=== PATIENT | female | born 1990 | race Caucasian/White ===

== ENCOUNTER 2017-10-22 17:05 | Emergency (ER) | payer OTHER ==
[~2017-10-22] VITALS: Ht 160 cm; Wt 113.7 kg
[2017-10-22 17:18] VITALS: BP 172/126; PULSE 85; TEMP 36.6; O2SAT 99; Ht 160 cm; Wt 113.7 kg
[2017-10-22] MEDS ORDERED: OXYC-57 PO (17:42)
[2017-10-22] MEDS ORDERED: CLIN300C2 PO (17:42)
--- NOTE | 2017-10-22 17:44 | EMERGENCY ROOM VISIT NOTE ---
History First contact with patient: 17:20 Chief Complaint: DENTAL PAIN Stated Complaint: TOOTH PAIN Nursing Triage Summary: Pt c/o right lower dental pain. States needs surgery to have a tooth removed. Pain into jaw and right ear. Lump in throat, unable to open/close mouth the whole way. Unable to find oral surgeon who takes her insurance, closest she can find is [facility]. Took 2 hydrocodone 5mg at 1200. Alternating Tylenol/Ibuprofen. History of Present Illness The patient is a 27 year old female who presents to the Emergency Room with complaints of right lower dental pain. The patient states that she has a broken off right lower molar. She reports pain in the right jaw which has been present for 1 week. She was seen at an urgent care and placed on Augmentin which she has been taking. She feels the pain has been worsening. She rates her discomfort an 8/10. The pain radiates into the ear and on the neck. She describes the pain as throbbing. She states there is a lump in the right side of her throat as well. She has been alternating hot and cold as well as taking Tylenol and ibuprofen without relief. She does admit to having a few leftover hydrocodone from a previous episode of dental pain and took this without relief. She has been told previously that she needs to have surgery to have the tooth removed. She reports she has been trying to get in with an oral surgeon, however she cannot find one that takes her insurance. Review of Systems A complete 10 point review of systems was reviewed with the patient with pertinent positives and negatives as per history of present illness. All else were negative. Past Medical/Surgical History Medical Problems: (1) No significant active problems Social History Smoking Status: Current Every Day Smoker Alcohol Use: none Housing Status: lives with family Current/Historical Medications Scheduled Clindamycin Hcl (Cleocin), 300 MG PO QID Scheduled PRN Oxycodone/Acetaminophen 5MG/325MG (Percocet 5MG/325MG), 1-2 TABS PO Q6H PRN for Pain Physical Exam Vital Signs Date Time Temp Pulse Resp B/P (MAP) Pulse Ox O2 Delivery O2 Flow Rate FiO2 18 17:18 36.6 85 18 172/126 99 Room Air Physical Exam VITALS: Vitals are noted on the nurse's note and reviewed by myself. Vital signs stable. GENERAL: This is a 27-year-old female, in no acute distress, nondiaphoretic, well-developed well-nourished. SKIN: The skin was without rashes. EARS: External auditory canals clear, tympanic membranes pearly osullivan without erythema or effusion bilaterally. EYES: Pupils equal round and reactive to light and accommodation. MOUTH: Mucous membranes moist. There is a broken off right lower molar with mild edema of the surrounding gums. No drainage or signs of an obvious abscess. NECK: Supple without nuchal rigidity. Slightly enlarged right submandibular lymph node. HEART: Regular rate and rhythm without murmurs gallops or rubs. LUNGS: Clear to auscultation bilaterally without wheezes, rales or rhonchi. NEURO: Patient was alert and oriented to person place and time. Medical Decision & Procedures Medical Decision The patient was evaluated as above. She presents with right lower dental pain. There is no tenderness of the floor of the mouth or significant swelling to suggest Jabari's angina or a significant facial cellulitis. She will be switched to clindamycin as she has had worsening symptoms on Augmentin. She was given a short course of pain medication. Conservative measures were discussed. Patient was again encouraged to follow-up with dentistry/oral surgery for definitive care. She was advised to return here for worsening swelling, fevers, or other new/concerning symptoms. She verbalized understanding of my assessment and treatment plan and was discharged home in good condition. Medication Reconcilliation Current Medication List: was personally reviewed by me Blood Pressure Screening Patient's blood pressure: Elevated blood pressure Blood pressure disposition: Referred to PCP Impression Primary Impression: Dental infection Departure Information Dispostion Home / Self-Care Condition GOOD Prescriptions Oxycodone/Acetaminophen 5MG/325MG (PERCOCET 5MG/325MG) Tab 1-2 TABS PO Q6H Y for Pain, #10 TAB For Initial Treatment Prov: Mabel Prieto PA-C 10/22/17 Clindamycin Hcl (CLEOCIN) 300 Mg Cap 300 MG PO QID for 10 Days, #40 CAP Prov: Mabel Prieto PA-C 10/22/17 Referrals No Doctor, Assigned (PCP) Patient Instructions My [facility] Additional Instructions You have been treated in the Emergency Department for Dental Pain. You have been prescribed Percocet to be used for pain control. This is a narcotic medication. You cannot drive or consume alcohol while on this medicine. This medicine should only be used for pain that cannot be controlled with [id number] pain medicines. You were prescribed Clindamycin to be taken four times daily as prescribed. This is an antibiotic. All antibiotics have the potential to cause diarrhea. Stop this medication and contact a medical provider if you were to develop any significant adverse side effects including: wheezing, shortness of breath, passing out, vomiting, or a diffuse rash. Always take antibiotics as directed and COMPLETE the ENTIRE course regardless of the improvement of your symptoms. Stop the Augmentin. For pain control, you can use the following [id number] medicines (if >12 yo): - Regular strength (325mg/tab) Tylenol (acetaminophen) 2 tabs every 4-6 hours as needed. Do not exceed 12 tablets in a 24 hour period. Avoid taking more than 4 grams (4000 mg) of Tylenol per day. This includes any other sources of acetaminophen you may take on a regular basis. - Regular strength (200 mg/tab) Advil (ibuprofen) 1-2 tabs every 4-6 hours as needed. Do not exceed a dose of 3200 mg per day. Refrain from smoking cigarettes or using chewing tobacco until you have been evaluated by your dentist. Keeping beverages lukewarm and consuming soft foods can decrease your pain. Warm compresses over the affected area may offer some relief. You MUST seek evaluation of your dental pain by a dentist following your visit to the Emergency Department. The Emergency Department is not capable of treating dental issues long-term. You should call your dentist as soon as possible to make an appointment for evaluation of your dental pain. Follow up with Dr. Nicholas [phone] [place] [address]., [address] Return to the emergency department if you develop the following symptoms despite treatment course outlined above: fever, intractable pain, increased redness, swelling, or purulent discharge.
== END 2017-10-22 18:26 | disposition home or self-care (01) ==
LOC: C.EDB 17:06 → C.EDD 18:26
DX: K04.7 Periapical abscess without sinus (principal); F17.200 Nicotine dependence, unspecified, uncomplicated